=== PATIENT | female | born 1945 | race Caucasian/White ===

== ENCOUNTER → 2018-07-28 09:49 | Outpatient (CLI) | payer MEDICARE, SELFPAY ==
[2018-07-28 13:06] LABS: ALB/GLOB Ratio 1.2 RATIO (0.9-2.4); AST(SGOT) 31 U/L (15-37); Alanine Aminotransfer ALT/SGPT 29 U/L (13-56); Albumin, Serum 3.7 g/dL (3.2-5.0); Alkaline Phosphatase 76 U/L (45-117); Anion Gap 8 (5-15); BUN 15 mg/dL (7-18); Calcium,Total 8.9 mg/dL (8.5-10.1); Chloride 105 mmol/L (98-107); Cholesterol 219 mg/dL (200); Creatinine, Serum 0.94 mg/dL (0.55-1.02); EST Glomerular Filtration Rate 62 mL/min (>60); Est Glom Filt Rate - Afr Amer 75 mL/min (>60); Glucose 86 mg/dL (74-106); High Density Lipoprotein 51 mg/dL; Potassium 4.4 mmol/L (3.5-5.1); Protein, Total 6.7 g/dL (6.4-8.2); Sodium Level 142 mmol/L (136-145); Thyroid Stim Hormone (TSH) 1.88 uIU/mL (0.358-3.74); Triglycerides 99 mg/dL; Very Low Density Lipoprotein 20 mg/dL (5-40)
[2018-07-28 13:09] LABS: Vitamin D,25 Hydroxy 77.6 ng/mL (29.95-100.01)
--- OUTSIDE RECORDS SUMMARY | 2018-09-09 00:04 | XMS RPT_ITS ---
:1945 Author Organization OHIP Support Name Relationship Address Phone R Unavailable Unavailable Unavailable ARTI, URA Unavailable [address] + [place] [address] NOT GIVEN Unavailable Unavailable Unavailable ARTI, URA Unavailable [address] [place] [address] ARTI, URA Unavailable [address] [address] NOT GIVEN Unavailable Unavailable Unavailable ARTI, URA Unavailable [address] + [place] [address] ARTI, URA Unavailable [address] [address] NOT GIVEN Unavailable Unavailable Unavailable NOT GIVEN Unavailable Unavailable Unavailable ARTI, URA Unavailable [address] + [place] [address] ARTI, URA Unavailable [address] [address] NOT GIVEN Unavailable Unavailable Unavailable ARTI, URA Unavailable [address] + [place] [address] ARTI, URA Unavailable [address] [address] NOT GIVEN Unavailable Unavailable Unavailable ARTI, URA Unavailable [address] + [place] [address] ARTI, URA Unavailable [address] [address] NOT GIVEN Unavailable Unavailable Unavailable ARTI, URA Unavailable [address] + [place] [address] ARTI, URA Unavailable [address] [address] NOT GIVEN Unavailable Unavailable Unavailable ARTI, URA Unavailable [address] + [place] [address] ARTI, URA Unavailable [address] [address] NOT GIVEN Unavailable Unavailable Unavailable ARTI, URA Unavailable [address] + [place] [address] ARTI, URA Unavailable [address] [address] NOT GIVEN Unavailable Unavailable Unavailable ARTI, URA Unavailable [address] + [place] [address] ARTI, URA Unavailable [address] [place] [address] NOT GIVEN Unavailable Unavailable Unavailable ARTI, URA Unavailable [address] + [place] [address] ARTI, URA Unavailable [address] [address] Care Team Providers Name Role Phone Huyen Day Attending Unavailable Huyen Day Primary Care Unavailable KIESHA ARMENDARIZ Consulting Unavailable NATASHA DUNAWAY MD Primary Care Unavailable NATASHA DUNAWAY MD Attending Unavailable NATASHA DUNAWAY MD Admitting Unavailable PROVIDER, UNKNOWN Consulting Unavailable PROVIDER, UNKNOWN Consulting Unavailable PROVIDER, UNKNOWN Consulting Unavailable [facility] Admitting Unavailable MARCOS RIVERA Attending Unavailable MARCOS RIVERA [facility] Primary Care Unavailable HUYEN DAY MD Consulting Unavailable PROVIDER, UNKNOWN Consulting Unavailable MARCOS RIVERA [facility] Admitting Unavailable MARCOS RIVERA Attending Unavailable MARCOS RIVERA [facility] Primary Care Unavailable HUYEN DAY MD Consulting Unavailable PROVIDER, UNKNOWN Consulting Unavailable MARCOS RIVERA [facility] Admitting Unavailable MARCOS RIVERA Attending Unavailable MARCOS RIVERA [facility] Primary Care Unavailable HUYEN DAY MD Consulting Unavailable PROVIDER, UNKNOWN Consulting Unavailable MARCOS RIVERA [facility] Admitting Unavailable MARCOS RIVERA Attending Unavailable MARCOS RIVERA [facility] Primary Care Unavailable HUYEN DAY MD Consulting Unavailable PROVIDER, UNKNOWN Consulting Unavailable MARCOS RIVERA [facility] Admitting Unavailable MARCOS RIVERA [facility] Care Unavailable HUYEN DAY MD Consulting Unavailable PROVIDER, UNKNOWN Consulting Unavailable MARCOS RIVERA [facility] Admitting Unavailable MARCOS RIVERA [facility]ending [facility] Primary Care Unavailable HUYEN DAY MD Consulting Unavailable PROVIDER, UNKNOWN Consulting Unavailable [facility] Admitting Unavailable [facility]ending [facility] Unavailable HUYEN DAY MD Consulting Unavailable PROVIDER, UNKNOWN Consulting Unavailable [facility] Ad[facility] Primary Care Unavailable HUYEN DAY MD Consulting Unavailable PROVIDER, UNKNOWN Consulting Unavailable [facility] Admitting [facility] Primary Care Unavailable HUYEN DAY MD Consulting Unavailable PROVIDER, UNKNOWN Consulting Unavailable [facility] Admitting Unavailable [facility] Attending Un[facility] Primary Care Unavailable HUYEN DAY MD Consulting Unavailable PROVIDER, UNKNOWN Consulting Unavailable PROBLEMS PROBLEMS DATE TYPE CONDITION / CODE ATTENDING STATUS SOURCE 05/26/2018 Principle Essential GUMENATASHA Diagnosis (primary) [facility] hypertension / Hospital I10(ICD-10) Repository 05/26/2018 Secondary Hyperlipidemia, NATASHA DUNAWAY Diagnosis unspecified / [facility] E785(ICD-10) Hospital Repository 05/26/2018 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 LAB L501.1000 7-18 mg/dL Normal BUN 15 LAB L501.1100 0.55-1.02 mg/dL Normal CREAT,SERUM 0.94 Result Comment: The validity of the calculated GFR AND GFRAA in patients over 70 years has not been determined. Clinical correlation is essential. LAB L501.1110 >60 mL/min Normal EST GFR 62 Result Comment: Non- GFR Calc LAB L501.1115 >60 mL/min Normal EST GFR - AA 75 Result Comment: GFR Calc LAB L501.1300 10-20 RATIO Normal BUN/CRE 16.0 LAB L501.1500 6.4-8.2 g/dL T Normal PROT 6.7 LAB L501.1800 3.2-5.0 g/dL Normal ALB 3.7 LAB L501.1950 2.2-4.2 g/dL Normal GLOB 3.0 LAB L501.2000 0.9-2.4 RATIO Normal A/G 1.2 LAB L501.2200 8.5-10.1 mg/dL CA Normal 8.9 LAB L501.4100 15-37 U/L Normal AST 31 LAB L501.4305 45-117 U/L Normal ALK P 76 LAB L501.4405 13-56 U/L Normal ALT 29 LAB L501.4600 0.20-1.00 mg/dL T Normal BILI 0.60 LAB L501.5300 136-145 mmol/L NA Normal 142 LAB L501.5600 3.5-5.1 mmol/L K Normal 4.4 LAB L501.5900 98-107 mmol/L CL Normal 105 LAB L501.6100 21.0-32.0 mmol/L Normal CO2 29.0 LAB L501.6200 5-15 Normal GAP 8 Performed By: #### L500.4050, L500.4100, L501.9520, L506.1000 #### [facility] [address] [place], [address] LIPID PROFILE Collected: 07/28/2018 Status: F Source: SUE 9:52 AM [facility] REPOSITORY Order Comment: Order Date: 01/27/18 Order Info: [id number] - CMP Order Info: [id number] - LIPID Order Info: 3016-3 - TSH TYPE CODE TESTS RESULT OUT OF RANGE REFERENCE UNITS LAB L501.4900 200 mg/dL High CHOL 219 Result Comment: <200 mg/dL Desirable 200-240 mg/dL Borderline >240 mg/dL High Risk LAB L501.5000 mg/dL Normal TRIG 99 Result Comment: The drugs N-Acetylcysteine and Metamizole may falsely depress this assay. Serum Triglycerides Reference Interval Normal <150 mg/dL Borderline high 150 - 199 mg/dL High 200 - 499 mg/dL Very High > or = 500 mg/dL LAB L501.6400 mg/dL Normal HDL 51 Result Comment: The drugs N-Acetylcysteine and Metamizole may falsely depress this assay. Reference Range HDL <40 mg/dL Low HDL Cholesterol HDL >or= 60 mg/dL High HDL Cholesterol LAB L501.6500 0-130 mg/dL High LDL 148 LAB L501.6600 5-40 mg/dL Normal VLDL 20 Performed By: #### L500.4050, L500.4100, L501.9520, L506.1000 #### [facility] [address] [place], [address] THYROID STIM HORMONE Collected: 07/28/2018 Status: F Source: SUE (TSH) 9:52 AM [facility] REPOSITORY Order Comment: Order Date: 01/27/18 Order Info: [id number] - CMP Order Info: [id number] - LIPID Order Info: [id number] - TSH TYPE CODE TESTS RESULT OUT OF RANGE REFERENCE UNITS LAB L501.9520 0.358-3.74 uIU/mL Normal TSH 1.88 Performed By: #### L500.4050, L500.4100, L501.9520, L506.1000 #### [facility] [address] [facility] [place], [address] VITAMIN D,25 HYDROXY Collected: 07/28/2018 Status: F Source: SUE 9:52 AM [facility] REPOSITORY Order Comment: Order Date: 01/27/18 Order Info: [id number] - VITD25 TYPE CODE TESTS RESULT OUT OF RANGE REFERENCE UNITS LAB L506.1000 29.95-100.01 ng/mL Normal Vitamin D 77.6 25-OH Result Comment: Vitamin D 25(OH) Status Range Deficiency <20 ng/mL (50nmol/L) Insuffciency 20 - 30 ng/mL (50 - 75 nmol/L) Sufficiency 30 - 100 ng/mL (75 - 250 nmol/L) Toxicity >100 ng/mL (>250 nmol/L) Performed By: #### L500.4050, L500.4100, L501.9520, L506.1000 #### [facility] [address] [place], [address] LIPID PROFILE Collected: 07/22/2018 Status: F Source: PAUL CORTES 9:23 [facility] REPOSITORY TYPE CODE TESTS RESULT OUT OF REFERENCE UNITS RANGE LAB LIPID PROFILE(LOIN C) LIPID PROFILE Result Comment: LIPID PROFILE LAB TRIGLYCERIDE(LOINC) 0 - 150 mg/dl TRIGLYCERIDE 73 LAB CHOLESTEROL(LOINC) 0 - 200 mg/dl CHOLESTEROL High 204 LAB HDL(LOINC) 40 - 60 mg/dl HDL 50 LAB CHOL/HDL(LOINC) 0.0 - 5.0 CHOL/HDL 4.1 LAB LDL(LOINC) 0 - 129 mg/dl LDL High 139 Performed By: #### [id number] #### [address] [address] LIPID PROFILE Collected: 06/17/2018 Status: F Source: PAUL GARZAJANINA 9:18 [facility] REPOSITORY TYPE CODE TESTS RESULT OUT OF REFERENCE UNITS RANGE LAB LIPID PROFILE(LOIN C) LIPID PROFILE Result Comment: LIPID PROFILE LAB TRIGLYCERIDE(LOINC) 0 - 150 mg/dl TRIGLYCERIDE 98 LAB CHOLESTEROL(LOINC) 0 - 200 mg/dl CHOLESTEROL High 260 LAB HDL(LOINC) 40 - 60 mg/dl HDL 44 LAB CHOL/HDL(LOINC) 0.0 - 5.0 CHOL/HDL High 5.9 LAB LDL(LOINC) 0 - 129 mg/dl LDL High 196 Performed By: #### [id number] #### [address] [address] LIPID PROFILE Collected: 05/20/2018 Status: F Source: PAUL CORTES 8:45 [facility] REPOSITORY TYPE CODE TESTS RESULT OUT OF REFERENCE UNITS RANGE LAB LIPID PROFILE(LOIN C) LIPID PROFILE Result Comment: LIPID PROFILE LAB TRIGLYCERIDE(LOINC) 0 - 150 mg/dl TRIGLYCERIDE 136 LAB CHOLESTEROL(LOINC) 0 - 200 mg/dl CHOLESTEROL High 246 LAB HDL(LOINC) 40 - 60 mg/dl HDL 49 LAB CHOL/HDL(LOINC) 0.0 - 5.0 CHOL/HDL 5.0 LAB LDL(LOINC) 0 - 129 mg/dl LDL High 170 Performed By: #### [id number] #### [place] [id number] LIPID PROFILE Collected: 04/15/2018 Status: F Source: [facility] 7:35 [facility] REPOSITORY TYPE CODE TESTS RESULT OUT OF REFERENCE UNITS RANGE LAB LIPID PROFILE(LOIN C) LIPID PROFILE Result Comment: LIPID PROFILE LAB TRIGLYCERIDE(LOINC) 0 - 150 mg/dl TRIGLYCERIDE 118 LAB CHOLESTEROL(LOINC) 0 - 200 mg/dl CHOLESTEROL High 249 LAB HDL(LOINC) 40 - 60 mg/dl HDL 50 LAB CHOL/HDL(LOINC) 0.0 - 5.0 CHOL/HDL 5.0 LAB LDL(LOINC) 0 - 129 mg/dl LDL High 175 Performed By: #### [id number] #### [place] [id number] LIPID PROFILE Collected: 03/18/2018 Status: F Source: [facility] 7:45 [facility] REPOSITORY TYPE CODE TESTS RESULT OUT OF REFERENCE UNITS RANGE LAB LIPID PROFILE(LOIN C) LIPID PROFILE Result Comment: LIPID PROFILE LAB TRIGLYCERIDE(LOINC) 0 - 150 mg/dl High TRIGLYCERIDE 163 LAB CHOLESTEROL(LOINC) 0 - 200 mg/dl CHOLESTEROL High 246 LAB HDL(LOINC) 40 - 60 mg/dl HDL 44 LAB CHOL/HDL(LOINC) 0.0 - 5.0 CHOL/HDL High 5.6 LAB LDL(LOINC) 0 - 129 mg/dl LDL High 169 Performed By: #### [id number] #### [place] [id number] LIPID PROFILE Collected: 02/18/2018 Status: F Source: [facility] 7:19 [facility] REPOSITORY TYPE CODE TESTS RESULT OUT OF REFERENCE UNITS RANGE LAB LIPID PROFILE(LOIN C) LIPID PROFILE Result Comment: LIPID PROFILE LAB TRIGLYCERIDE(LOINC) 0 - 150 mg/dl High TRIGLYCERIDE 151 LAB CHOLESTEROL(LOINC) 0 - 200 mg/dl CHOLESTEROL High 244 LAB HDL(LOINC) 40 - 60 mg/dl HDL 52 LAB CHOL/HDL(LOINC) 0.0 - 5.0 CHOL/HDL 4.7 LAB LDL(LOINC) 0 - 129 mg/dl LDL High 162 Performed By: #### [id number] #### [place] [address] LIPID PROFILE Collected: 01/14/2018 Status: F Source: PAUL CORTES 8:42 [facility] REPOSITORY TYPE CODE TESTS RESULT OUT OF REFERENCE UNITS RANGE LAB LIPID PROFILE(LOIN C) LIPID PROFILE Result Comment: LIPID PROFILE LAB TRIGLYCERIDE(LOINC) 0 - 150 mg/dl TRIGLYCERIDE 113 LAB CHOLESTEROL(LOINC) 0 - 200 mg/dl CHOLESTEROL High 224 LAB HDL(LOINC) 40 - 60 mg/dl HDL 55 LAB CHOL/HDL(LOINC) 0.0 - 5.0 CHOL/HDL 4.1 LAB LDL(LOINC) 0 - 129 mg/dl LDL High 146 Performed By: #### [id number] #### [place] [address] LIPID PROFILE Collected: 12/17/2017 Status: F Source: PAUL CORTES 8:20 [facility] REPOSITORY TYPE CODE TESTS RESULT OUT OF REFERENCE UNITS RANGE LAB LIPID PROFILE(LOIN C) LIPID PROFILE Result Comment: LIPID PROFILE LAB TRIGLYCERIDE(LOINC) 0 - 150 mg/dl TRIGLYCERIDE 144 LAB CHOLESTEROL(LOINC) 0 - 200 mg/dl CHOLESTEROL High 246 LAB HDL(LOINC) 40 - 60 mg/dl HDL 48 LAB CHOL/HDL(LOINC) 0.0 - 5.0 CHOL/HDL High 5.1 LAB LDL(LOINC) 0 - 129 mg/dl LDL High 169 Performed By: #### [id number] #### [place] [address] LIPID PROFILE Collected: 10/22/2017 Status: F Source: PAUL CORTES 8:15 [facility] REPOSITORY TYPE CODE TESTS RESULT OUT OF REFERENCE UNITS RANGE LAB LIPID PROFILE(LOIN C) LIPID PROFILE Result Comment: LIPID PROFILE LAB TRIGLYCERIDE(LOINC) 0 - 150 mg/dl High TRIGLYCERIDE 163 LAB CHOLESTEROL(LOINC) 0 - 200 mg/dl CHOLESTEROL High 257 LAB HDL(LOINC) 40 - 60 mg/dl HDL 48 LAB CHOL/HDL(LOINC) 0.0 - 5.0 CHOL/HDL High 5.4 LAB LDL(LOINC) 0 - 129 mg/dl LDL High 176 Performed By: #### [id number] #### [place] [id number] LIPID PROFILE Collected: 09/17/2017 Status: F Source: PAUL GARZAERENE 9:30 AM [facility] REPOSITORY TYPE CODE TESTS RESULT OUT OF REFERENCE UNITS RANGE LAB LIPID PROFILE(LOIN C) LIPID PROFILE Result Comment: LIPID PROFILE LAB TRIGLYCERIDE(LOINC) 0 - 150 mg/dl High TRIGLYCERIDE 151 LAB CHOLESTEROL(LOINC) 0 - 200 mg/dl CHOLESTEROL High 304 LAB HDL(LOINC) 40 - 60 mg/dl HDL 52 LAB CHOL/HDL(LOINC) 0.0 - 5.0 CHOL/HDL High 5.8 LAB LDL(LOINC) 0 - 129 mg/dl LDL High 222 Performed By: #### [id number] #### [facility],[address] [place] [address] ALLERGIES ALLERGIES DATE TYPE / CODE NAME / CODE REACTION SEVERITY SOURCE Miscellaneous No Known Drug Moderate Pauldario Garzajanina Allergy/[id number](S Allergies ([facility]) Modifier) Hospital (Qualifier Repository Value) ENCOUNTERS ENCOUNTERS ADMIT/DISCHARGE ACCOUNT ADMITTING ENCOUNTER LOCATION SOURCE NUMBER CLASS 07/28/2018 [id number] Ambulatory [address] ing:MFPLAB Repository 07/22/2018/ [id number] PAUL, Ambulatory Paul Pomerene [address] [place] [address] Repository 06/17/2018/ [id number] PAUL, Ambulatory Paul Pomerene [address] [place] [address] Repository 05/26/2018 [id number] GUME Ambulatory [place] NATASHA [facility] Repository 05/20/2018/ [id number] PAUL, Ambulatory Paul Pomerene [address] [place] [address] Repository 04/15/2018/ [id number] PAUL, Ambulatory Paul Pome[place] [address] [place] [address] Repository 03/18/2018/ [id number] PAUL, Ambulatory Paul Pome[place] [address] [place] [address] Repository 02/18/2018/ [id number] PAUL, Ambulatory Paul Pomerene [address] [place] [address] Repository 01/14/2018/ [id number] PAUL, Ambulatory Paul Pomerene [address] [place] [address] Repository 12/17/2017/ [id number] PAUL, Ambulatory Paul Pomerene 8 [facility] Repository 10/22/2017/ [id number] PAUL, Ambulatory Paul Pomerene 8 [facility] Repository 09/17/2017/ [id number] PAUL, Ambulatory Paul Pomerene 8 [facility] Repository PAYERS PAYERS ENCOUNTER GUARANTOR PAYER SUBSCRIBER SOURCE 07/28/2018 ROBERT S Primary VERBA S Sue [id number] Insurance:HUMANA STUTZMANDOB: Community [address] MEDICARE PPOPolicy [id number] Repository [place], [place] [id number]: [phone]) Date:[phone] () [address] [place] [id number]: 07/28/2018 Secondary NOT GIVENUNK [place] Insurance:SELF PAY [facility] Number: Effective Repository Date:2018-07-28 05/26/2018 VERBA S Primary VERBA S Paul Cortes STUTZMANDOB: Insurance:HUMANA STUTZMANDOB: [facility] MEDICARE [id number] [facility] LETICIALERSHECTOR Number: [place] [place] [address]Ypg: [id number] [address] Date:Plan Name: ()
== END ==
PROVIDERS: Family Provider Family Medicine; PCP Family Medicine; Visit Provider Family Medicine
DX: E78.5 Hyperlipidemia, unspecified (principal); M85.80 Other specified disorders of bone density and structure, unspecified site
CPT/HCPCS: 36415; 80053; 80061; 82306; 84443

== ENCOUNTER → 2019-02-03 | Outpatient (CLI) | payer MEDICARE, SELFPAY ==
[2019-02-03 15:56] LABS: Anion Gap 8 (5-15); BUN 12 mg/dL (7-18); BUN/Creat Ratio 11.7 RATIO (10-20); Calcium,Total 9.3 mg/dL (8.5-10.1); Chloride 105 mmol/L (98-107); Cholesterol 296 mg/dL (200); Creatinine, Serum 1.03 mg/dL (0.55-1.02); EST Glomerular Filtration Rate 56 mL/min (>60); Est Glom Filt Rate - Afr Amer 68 mL/min (>60); Glucose 93 mg/dL (74-106); High Density Lipoprotein 54 mg/dL; Potassium 4.6 mmol/L (3.5-5.1); Sodium Level 142 mmol/L (136-145); Triglycerides 141 mg/dL; Very Low Density Lipoprotein 28 mg/dL (5-40)
== END | disposition home or self-care (01) ==
PROVIDERS: Family Provider Family Medicine; PCP Family Medicine; Referring Provider Family Medicine; Visit Provider Family Medicine
DX: Z00.00 Encounter for general adult medical examination without abnormal findings (principal)
CPT/HCPCS: 36415; 80048; 80061

== ENCOUNTER → 2019-09-16 09:49 | Outpatient (CLI) | payer MEDICARE, SELFPAY ==
--- NOTE | 2019-09-16 09:53 | BI_ITS ---
MAMMOGRAPHY - BILATERAL SCREENING REASON FOR EXAM: Female, 73 years old. Routine annual screening examination. PERTINENT HISTORY: Non-contributory. TECHNIQUE: Digital bilateral breast marcie (3D mammographic acquisition) in the CC and MLO projections. 2-D mediolateral oblique (MLO) and craniocaudad (CC) views of both breasts were obtained. CAD: Full Field Digital Mammography with Computer Added Detection was performed. COMPARISON: Comparison is made with prior axial examination dated April 18, 2015. FINDINGS: Breast Composition: The breasts are heterogeneously dense, which may obscure small masses. There are no dominant masses or suspicious calcifications. No other significant abnormalities are identified. There has been no significant change since the prior study. BI/SCREEN MAMM (CAD) W/MARCIE BILAT IMPRESSION: Stable bilateral screening mammogram. Yearly follow-up mammogram recommended. (A) ASSESSMENT CATEGORY: BIRADS Category 1: Negative. A letter regarding these results will be sent to the patient by the facility within 30 days. Approximately 10% of breast cancers are not detected by mammography. A normal mammogram should not delay biopsy of a clinically suspicious abnormality. [id number] Electronically Signed: Fer Avila, at 8:50 EST , Service support ,
--- NOTE | 2019-09-16 10:27 | BD_ITS ---
STUDY: DUAL ENERGY X-RAY ABSORPTIOMETRY / DXA REASON FOR EXAM: Female, 73 years old. CHIN STRAP SEWER -- TAKES VITAMIN D -- HX OF TAKING ACTONEL AND FOSAMAX IN PAST -- DOES LITTLE EXERCISE -- HX OF LEFT HUMERUS FX -- CRISTINA OF 1-1.5 INCH TECHNIQUE: Bone Mineral Density (BMD) measurements of lumbar spine and bilateral hips were obtained. COMPARISON: None. FINDINGS: Lumbar Spine (L1-L4): g/cm2 (0.976) / T-score (-1.7) / Z-score (0.0) Findings are suggestive of osteopenia with a moderate fracture risk. Left Femur Total: g/cm2 (0.773) / T-score (-1.9) / Z-score (-0.2) Left Femoral Neck: g/cm2 (0.807) / T-score (-1.7) / Z-score (0.2) Right Femur Total: g/cm2 (0.723) / T-score (-2.3) / Z-score (-0.6) Right Femoral Neck: g/cm2 (0.802) / T-score (-1.7) / Z-score (0.2) BD/Dexa Bone Density Study IMPRESSION: The patient is considered osteopenic as outlined below according to World Alvin Organization (WHO) criteria with a high fracture risk. Reference Information: The T-score is the number of standard deviations above or below the standard which is normal for young adults at their peak bone mineral density. The World Health Organization (WHO) interprets the T-scores as follows: Above -1 Normal bone density Between -1 and -2.5 Osteopenia Equal to / or below -2.5 Osteoporosis As a practical clinical guideline, osteopenia may be graded as follows: Mild -1 through -1.5 Moderate -1.6 through -2.0 Severe -2.1 through -2.4 The Z-score is the number of standard deviations above or below age-matched controls. A Z-score of less than -1.5 would be considered abnormal. References: 1. NIH Osteoporosis and Related Bone Diseases http://www.osteo.org 2. International Society for Clinical Densitometry http://www.iscd.org 3. National Osteoporosis Foundation http://www.nof.org Electronically Signed: Fer Avila, at 13:32 EST , Service support ,
== END ==
PROVIDERS: Family Provider Family Medicine; PCP Family Medicine; Referring Provider Family Medicine; Visit Provider Family Medicine
DX: Z00.00 Encounter for general adult medical examination without abnormal findings (principal); Z12.31 Encounter for screening mammogram for malignant neoplasm of breast; Z78.0 Asymptomatic menopausal state
CPT/HCPCS: 77063; 77067; 77080

== ENCOUNTER → 2020-02-08 08:39 | Outpatient (CLI) | payer MEDICARE, SELFPAY ==
[2020-02-08 10:28] LABS: ALB/GLOB Ratio 0.9 RATIO (0.9-2.4); AST(SGOT) 28 U/L (15-37); Alanine Aminotransfer ALT/SGPT 29 U/L (13-56); Albumin, Serum 3.7 g/dL (3.2-5.0); Alkaline Phosphatase 89 U/L (45-117); Anion Gap 6 (5-15); BUN 11 mg/dL (7-18); BUN/Creat Ratio 11.1 RATIO (10-20); Calcium,Total 9.5 mg/dL (8.5-10.1); Chloride 103 mmol/L (98-107); Cholesterol 273 mg/dL (200); Creatinine, Serum 0.99 mg/dL (0.55-1.02); EST Glomerular Filtration Rate 58 mL/min (>60); Est Glom Filt Rate - Afr Amer 71 mL/min (>60); Globulin 3.9 g/dL (2.2-4.2); Glucose 105 mg/dL (74-106); High Density Lipoprotein 49 mg/dL; Potassium 4.5 mmol/L (3.5-5.1); Protein, Total 7.6 g/dL (6.4-8.2); Sodium Level 139 mmol/L (136-145); Triglycerides 125 mg/dL; Very Low Density Lipoprotein 25 mg/dL (5-40)
[2020-02-08 10:30] LABS: Vitamin D,25 Hydroxy 83.4 ng/mL
== END ==
PROVIDERS: PCP Family Medicine; Referring Provider Family Medicine; Visit Provider Family Medicine
DX: Z00.00 Encounter for general adult medical examination without abnormal findings (principal); I10 Essential (primary) hypertension; E55.9 Vitamin D deficiency, unspecified
CPT/HCPCS: 36415; 80053; 80061; 82306

== ENCOUNTER → 2020-08-08 09:43 | Outpatient (CLI) | payer MEDICARE, SELFPAY ==
[2020-08-08 12:44] LABS: Anion Gap 5 (5-15); BUN 15 mg/dL (7-18); BUN/Creat Ratio 16.2 RATIO (10-20); Calcium,Total 9.2 mg/dL (8.5-10.1); Chloride 105 mmol/L (98-107); Cholesterol 241 mg/dL (200); Creatinine, Serum 0.93 mg/dL (0.55-1.02); EST Glomerular Filtration Rate 63 mL/min (>60); Est Glom Filt Rate - Afr Amer 76 mL/min (>60); Glucose 86 mg/dL (74-106); High Density Lipoprotein 51 mg/dL; Potassium 4.4 mmol/L (3.5-5.1); Sodium Level 140 mmol/L (136-145); Triglycerides 122 mg/dL; Very Low Density Lipoprotein 24 mg/dL (5-40)
[2020-08-08 12:46] LABS: Vitamin D,25 Hydroxy 69.8 ng/mL
== END ==
PROVIDERS: PCP Family Medicine; Visit Provider Family Medicine
DX: I10 Essential (primary) hypertension (principal); E55.9 Vitamin D deficiency, unspecified
CPT/HCPCS: 36415; 80048; 80061; 82306

== ENCOUNTER → 2020-12-27 08:06 | Outpatient (CLI) | payer MEDICARE, SELFPAY ==
--- NOTE | 2020-12-27 08:10 | BI_ITS ---
MAMMOGRAPHY - BILATERAL SCREENING REASON FOR EXAM: Female, 75 years old. Routine annual screening examination. PERTINENT HISTORY: Non-contributory. TECHNIQUE: Digital bilateral breast marcie (3D mammographic acquisition) in the CC and MLO projections. 2-D mediolateral oblique (MLO) and craniocaudad (CC) views of both breasts were obtained. CAD: Full Field Digital Mammography with Computer Added Detection was performed. COMPARISON: Comparison is made with prior study dated 03/16/2020. FINDINGS: Breast Composition: The breasts are heterogeneously dense, which may obscure small masses. There are no dominant masses or suspicious calcifications. No other significant abnormalities are identified. There has been no significant change since the prior study. BI/SCRN MAMM (CAD)W/MARCIE BILAT IMPRESSION: Stable bilateral screening mammogram. Yearly follow-up mammogram recommended. (A) ASSESSMENT CATEGORY: BIRADS Category 1: Negative. A letter regarding these results will be sent to the patient by the facility within 30 days. Approximately 10% of breast cancers are not detected by mammography. A normal mammogram should not delay biopsy of a clinically suspicious abnormality. [id number] Electronically Signed: Fer Avila MD at 9:11 EDT , Service support ,
== END ==
PROVIDERS: PCP Family Medicine; Referring Provider Family Medicine; Visit Provider Family Medicine
DX: Z00.00 Encounter for general adult medical examination without abnormal findings (principal); Z12.31 Encounter for screening mammogram for malignant neoplasm of breast
CPT/HCPCS: 77063; 77067

== ENCOUNTER → 2021-02-27 08:09 | Outpatient (CLI) | payer MEDICARE, SELFPAY | PROVIDERS: PCP Family Medicine; Visit Provider Family Medicine | DX: Z00.00 Encounter for general adult medical examination without abnormal findings (principal) ==

== ENCOUNTER → 2021-02-28 08:32 | Outpatient (CLI) | payer MEDICARE, SELFPAY ==
[2021-02-28 10:50] LABS: Anion Gap 6 (5-15); BUN 13 mg/dL (7-18); BUN/Creat Ratio 11.6 RATIO (10-20); Calcium,Total 9.2 mg/dL (8.5-10.1); Chloride 104 mmol/L (98-107); Cholesterol 253 mg/dL (200); Creatinine, Serum 1.12 mg/dL (0.55-1.02); EST Glomerular Filtration Rate 50 mL/min (>60); Est Glom Filt Rate - Afr Amer 61 mL/min (>60); Glucose 96 mg/dL (74-106); High Density Lipoprotein 51 mg/dL; Potassium 3.8 mmol/L (3.5-5.1); Sodium Level 140 mmol/L (136-145); Triglycerides 133 mg/dL; Very Low Density Lipoprotein 27 mg/dL (5-40)
== END ==
PROVIDERS: PCP Family Medicine; Visit Provider Family Medicine
DX: E78.5 Hyperlipidemia, unspecified (principal)
CPT/HCPCS: 36415; 80048; 80061

== ENCOUNTER 2021-09-10 09:26 | Outpatient (CLI) | payer MEDICARE, SELFPAY ==
[2021-09-10 11:18] LABS: Anion Gap 5 (5-15); BUN 13 mg/dL (7-18); BUN/Creat Ratio 14.2 RATIO (10-20); Calcium,Total 9.3 mg/dL (8.5-10.1); Chloride 102 mmol/L (98-107); Cholesterol 268 mg/dL (200); Creatinine, Serum 0.92 mg/dL (0.55-1.02); EST Glomerular Filtration Rate 63 mL/min (>60); Est Glom Filt Rate - Afr Amer 77 mL/min (>60); Glucose 93 mg/dL (74-106); High Density Lipoprotein 51 mg/dL; Potassium 4.1 mmol/L (3.5-5.1); Sodium Level 138 mmol/L (136-145); Triglycerides 137 mg/dL; Very Low Density Lipoprotein 27 mg/dL (5-40)
[2021-09-10 13:38] LABS: Vitamin D,25 Hydroxy 71.9 ng/mL
== END 2021-09-10 23:59 | disposition short-term general hospital (02) ==
LOC: MFPLAB 09:27
PROVIDERS: PCP Family Medicine; Visit Provider Family Medicine
DX: I10 Essential (primary) hypertension (principal); E78.5 Hyperlipidemia, unspecified; E55.9 Vitamin D deficiency, unspecified
CPT/HCPCS: 36415; 80048; 80061; 82306; 86769

== ENCOUNTER 2021-10-02 14:06 | Outpatient (CLI) | payer MEDICARE, SELFPAY ==
--- NOTE | 2021-10-02 14:23 | BD_ITS ---
STUDY: DUAL ENERGY X-RAY ABSORPTIOMETRY / DXA REASON FOR EXAM: Female, 75 years old. Z780. The patient is postmenopausal. TECHNIQUE: Bone Mineral Density (BMD) measurements of lumbar spine and bilateral hips were obtained. COMPARISON: Comparison is made with prior study dated 09/16/2019. FINDINGS: Lumbar Spine (L1-L4): g/cm2 (0.776) / T-score (-2.5) / Z-score (0.0) Findings are suggestive of osteopenia with a high fracture risk. Left Femur Total: g/cm2 (0.719) / T-score (-1.8) / Z-score (0.0) Left Femoral Neck: g/cm2 (0.58) / T-score (-2.4) / Z-score (-0.3) Right Femur Total: g/cm2 (0.657) / T-score (-2.3) / Z-score (-0.5) Right Femoral Neck: g/cm2 (0.562) / T-score (-2.6) / Z-score (-0.5) The T-Scores on the most recent prior examination were: Lumbar Spine (L1-L4): There has been worsening of bone density since the previous examination. Left Femur Total: which represents an improvement of 0.7%. Right Femur Total: which represents a worsening of 1.2%. BD/Dexa Bone Density Study IMPRESSION: The patient is considered osteoporotic as outlined below according to World Alvin Organization (WHO) criteria with a high fracture risk. There has been worsening of bone density since the previous examination. Reference Information: The T-score is the number of standard deviations above or below the standard which is normal for young adults at their peak bone mineral density. The World Health Organization (WHO) interprets the T-scores as follows: Above -1 Normal bone density Between -1 and -2.5 Osteopenia Equal to / or below -2.5 Osteoporosis As a practical clinical guideline, osteopenia may be graded as follows: Mild -1 through -1.5 Moderate -1.6 through -2.0 Severe -2.1 through -2.4 The Z-score is the number of standard deviations above or below age-matched controls. A Z-score of less than -1.5 would be considered abnormal. References: 1. NIH Osteoporosis and Related Bone Diseases www osteo.org 2. International Society for Clinical Densitometry www iscd.org 3. National Osteoporosis Foundation www nof.org Electronically Signed: Fer Avila MD at 12:35 EST ,
== END 2021-10-02 23:59 | disposition short-term general hospital (02) ==
LOC: OPBD 14:06
PROVIDERS: PCP Family Medicine; Visit Provider Family Medicine
DX: Z78.0 Asymptomatic menopausal state (principal)
CPT/HCPCS: 77080

== ENCOUNTER → 2022-01-17 | Outpatient (CLI) | payer MEDICARE, SELFPAY ==
--- NOTE | 2022-01-17 09:12 | BI_ITS ---
MAMMOGRAPHY - BILATERAL SCREENING REASON FOR EXAM: Female, 76 years old. Routine annual screening examination. PERTINENT HISTORY: Non-contributory. TECHNIQUE: Digital bilateral breast marcie (3D mammographic acquisition) in the CC and MLO projections. 2-D mediolateral oblique (MLO) and craniocaudad (CC) views of both breasts were obtained. CAD: Full Field Digital Mammography with Computer Added Detection was performed. COMPARISON: Comparison is made with prior study dated 12/27/2020 and 09/16/2019. FINDINGS: Breast Composition: The breasts are heterogeneously dense, which may obscure small masses. There are no dominant masses or suspicious calcifications. No other significant abnormalities are identified. There has been no significant change since the prior study. BI/SCRN MAMM (CAD)W/MARCIE BILAT IMPRESSION: Stable bilateral screening mammogram. Yearly follow-up mammogram recommended. (A) ASSESSMENT CATEGORY: BIRADS Category 1: Negative. A letter regarding these results will be sent to the patient by the facility within 30 days. Approximately 10% of breast cancers are not detected by mammography. A normal mammogram should not delay biopsy of a clinically suspicious abnormality. [id number] Electronically Signed: Fer Avila MD at 10:02 EDT ,
== END | disposition home or self-care (01) ==
LOC: OPBI 09:10
PROVIDERS: PCP Family Medicine; Visit Provider Family Medicine
DX: Z12.31 Encounter for screening mammogram for malignant neoplasm of breast (principal)
CPT/HCPCS: 77063; 77067

== ENCOUNTER → 2022-03-07 | Outpatient (CLI) | payer MEDICARE, SELFPAY ==
[2022-03-07 09:29] LABS: Anion Gap 2 (5-15); BUN 13 mg/dL (7-18); BUN/Creat Ratio 12.1 RATIO (10-20); Calcium,Total 9.5 mg/dL (8.5-10.1); Chloride 105 mmol/L (98-107); Cholesterol 245 mg/dL (200); Creatinine, Serum 1.07 mg/dL (0.55-1.02); EST Glomerular Filtration Rate 53 mL/min (>60); Est Glom Filt Rate - Afr Amer 64 mL/min (>60); Glucose 100 mg/dL (74-106); High Density Lipoprotein 53 mg/dL; Potassium 4.9 mmol/L (3.5-5.1); Sodium Level 138 mmol/L (136-145); Triglycerides 119 mg/dL; Very Low Density Lipoprotein 24 mg/dL (5-40)
[2022-03-07 09:32] LABS: Vitamin D,25 Hydroxy 78.2 ng/mL
== END | disposition home or self-care (01) ==
PROVIDERS: PCP Family Medicine; Referring Provider Family Medicine; Visit Provider Family Medicine
DX: I10 Essential (primary) hypertension (principal); E78.5 Hyperlipidemia, unspecified; E55.9 Vitamin D deficiency, unspecified
CPT/HCPCS: 80048; 80061; 82306

== ENCOUNTER → 2022-09-19 | Outpatient (CLI) | payer MEDICARE, SELFPAY ==
[2022-09-19 12:42] LABS: Anion Gap 6 (5-15); BUN 17 mg/dL (7-18); BUN/Creat Ratio 16.2 RATIO (10-20); Calcium,Total 9.6 mg/dL (8.5-10.1); Chloride 104 mmol/L (98-107); Creatinine, Serum 1.05 mg/dL (0.55-1.02); EST Glomerular Filtration Rate 54 mL/min (>60); Est Glom Filt Rate - Afr Amer 65 mL/min (>60); Glucose 87 mg/dL (74-106); Magnesium 2.5 mg/dL (1.6-2.6); Phosphorus 3.3 mg/dL (2.5-4.9); Potassium 4.5 mmol/L (3.5-5.1); Sodium Level 141 mmol/L (136-145)
[2022-09-19 12:43] LABS: PTHIN 41.6 pg/mL (18.4-80.1)
[2022-09-19 12:52] LABS: Vitamin D,25 Hydroxy 84.9 ng/mL
== END | disposition home or self-care (01) ==
LOC: MFPLAB 11:02
PROVIDERS: PCP Family Medicine; Visit Provider Family Medicine
DX: M81.0 Age-related osteoporosis without current pathological fracture (principal)
CPT/HCPCS: 36415; 80048; 82306; 82330; 83735; 83970; 84100

== ENCOUNTER → 2023-09-16 | Outpatient (CLI) | payer MEDICARE, SELFPAY ==
--- OUTSIDE RECORDS SUMMARY | 2023-09-16 08:51 | XMS RPT_ITS | CCD ---
Author Name Unknown Address [address] [place] [address] Organization [facility] Care Team Providers Care Forest Manager Name Role Phone [facility] Admitting Unavailable [facility] Attending Unavailable [facility] Primary Care Unavailable HUYEN DAY MD Consulting Unavailab le PROVIDER, UNKNOWN Consulting Unavailable Results Test Name Value Interpretation Reference Range Facil ity Encounters Encounter Date Encounter Type Care Provider Facility Start: 03-12-2023 End: 03-12-2023 [facility] Summary Purpose Family History No Family History Records Found Advance Directives No Advanced Directives Records Found Additional Source Comments INFORMATION SOURCE (unrecogn ized section and content) FOR RECORDS PERTAINING TO PATIENTS WHO ARE OR HAVE BEEN ENROLLED IN A CHEMICAL DEPENDENCY/SUBSTANCEABUSE PROGRAM, SOME INFORMATION MAY BE OMITTED. This clinical summary was aggregated from multiple sources. Caution should be exercised in using it in the provision of clinical care. This summary normalizes information from multiple sources, and as a consequence, information in this document may materially change the coding, format and clinical context of patient data. In addition, data may be omitted in some cases. CLINICAL DECISIONS SHOULD BE BASED ON THE PRIMARY CLINICAL RECORDS. [email or web address] provides no warranty or guarantee of the accuracy or completeness of information in this document.
[2023-09-16 10:41] LABS: Vitamin D,25 Hydroxy 102.3 ng/mL
[2023-09-16 10:53] LABS: AST(SGOT) 28 U/L (15-37); Alanine Aminotransfer ALT/SGPT 23 U/L (13-56); Albumin, Serum 3.6 g/dL (3.2-5.0); Alkaline Phosphatase 86 U/L (45-117); Anion Gap 8 (5-15); BUN 15 mg/dL (7-18); BUN/Creat Ratio 13.9 RATIO (10-20); Calcium,Total 9.9 mg/dL (8.5-10.1); Chloride 103 mmol/L (98-107); Cholesterol 277 mg/dL (200); Creatinine, Serum 1.08 mg/dL (0.55-1.02); EST Glomerular Filtration Rate 52 mL/min (>60); Est Glom Filt Rate - Afr Amer 63 mL/min (>60); Globulin 3.7 g/dL (2.2-4.2); Glucose 95 mg/dL (74-106); High Density Lipoprotein 60 mg/dL; Protein, Total 7.3 g/dL (6.4-8.2); Sodium Level 137 mmol/L (136-145); Thyroid Stim Hormone (TSH) 1.73 uIU/mL (0.358-3.74); Triglycerides 131 mg/dL; Very Low Density Lipoprotein 26 mg/dL (5-40)
== END | disposition home or self-care (01) ==
LOC: MFPLAB 08:25
PROVIDERS: PCP Family Medicine; Visit Provider Family Medicine
DX: M81.0 Age-related osteoporosis without current pathological fracture (principal); E78.5 Hyperlipidemia, unspecified
CPT/HCPCS: 36415; 80053; 80061; 82306; 84443

== ENCOUNTER → 2024-03-17 | Outpatient (CLI) | payer MEDICARE, SELFPAY | END | disposition home or self-care (01) | LOC: MFPLAB 11:27 | PROVIDERS: PCP Family Medicine; Visit Provider Family Medicine | DX: R69 Illness, unspecified (principal) ==

== ENCOUNTER → 2024-03-22 | Outpatient (CLI) | payer MEDICARE, SELFPAY ==
[2024-03-22 15:34] LABS: Anion Gap 3 (5-15); BUN 14 mg/dL (7-18); BUN/Creat Ratio 13.5 RATIO (10-20); Calcium,Total 9.2 mg/dL (8.5-10.1); Chloride 105 mmol/L (98-107); Creatinine, Serum 1.04 mg/dL (0.55-1.02); EST Glomerular Filtration Rate 54 mL/min (>60); Est Glom Filt Rate - Afr Amer 66 mL/min (>60); Glucose 90 mg/dL (74-106); Sodium Level 136 mmol/L (136-145)
== END | disposition home or self-care (01) ==
LOC: MFPLAB 13:52
PROVIDERS: PCP Family Medicine; Visit Provider Family Medicine
DX: I10 Essential (primary) hypertension (principal)
CPT/HCPCS: 36415; 80048

== ENCOUNTER → 2024-04-06 | Outpatient (CLI) | payer MEDICARE, SELFPAY ==
--- NOTE | 2024-04-06 14:38 | BI_ITS ---
MAMMOGRAPHY - BILATERAL SCREENING REASON FOR EXAM: Female, 78 years old. Routine annual screening examination. PERTINENT HISTORY: Non-contributory. TECHNIQUE: Digital bilateral breast marcie (3D mammographic acquisition) in the CC and MLO projections. 2-D mediolateral oblique (MLO) and craniocaudad (CC) views of both breasts were obtained. CAD: Full Field Digital Mammography with Computer Added Detection was performed. COMPARISON: Comparison is made with prior study January 17, 2022 and December 27, 2020. FINDINGS: Breast Composition: The breasts are heterogeneously dense, which may obscure small masses. There are no dominant masses or suspicious calcifications. No other significant abnormalities are identified. There has been no significant change since the prior study. BI/SCRN MAMM (CAD)W/MARCIE BILAT IMPRESSION: Stable bilateral screening mammogram. Yearly follow-up mammogram recommended. (A) ASSESSMENT CATEGORY: BIRADS Category 1: Negative. A letter regarding these results will be sent to the patient by the facility within 30 days. Approximately 10% of breast cancers are not detected by mammography. A normal mammogram should not delay biopsy of a clinically suspicious abnormality. [id number] Electronically Signed: Fer Avila MD at 15:38 EDT ,
--- NOTE | 2024-04-06 14:42 | BD_ITS ---
STUDY: DUAL ENERGY X-RAY ABSORPTIOMETRY / DXA REASON FOR EXAM: Female, 78 years old. [id number] TECHNIQUE: Bone Mineral Density (BMD) measurements of lumbar spine and bilateral hips were obtained. COMPARISON: Comparison is made with prior study dated October 02, 2021. FINDINGS: Lumbar Spine (L1-L4): g/cm2 (0.767) / T-score (-2.5) / Z-score (0.0) Findings are suggestive of osteoporosis with a high fracture risk. Left Femur Total: g/cm2 (0.711) / T-score (-1.9) / Z-score (0.1) Left Femoral Neck: g/cm2 (0.569) / T-score (-2.5) / Z-score (-0.3) Right Femur Total: g/cm2 (0.684) / T-score (-2.1) / Z-score (-0.1) Right Femoral Neck: g/cm2 (0.598) / T-score (-2.3) / Z-score (0.0) The T-Scores on the most recent prior examination were: Lumbar Spine (L1-L4): There has been worsening of bone density since the previous examination. Left Femur Total: which represents a worsening of 1.1%. Right Femur Total: which represents an improvement of 4.1%. BD/Dexa Bone Density Study IMPRESSION: The patient is considered osteoporotic as outlined below according to World Alvin Organization (WHO) criteria with a high fracture risk. There has been worsening of bone density since the previous examination. Reference Information: The T-score is the number of standard deviations above or below the standard which is normal for young adults at their peak bone mineral density. The World Health Organization (WHO) interprets the T-scores as follows: Above -1 Normal bone density Between -1 and -2.5 Osteopenia Equal to / or below -2.5 Osteoporosis As a practical clinical guideline, osteopenia may be graded as follows: Mild -1 through -1.5 Moderate -1.6 through -2.0 Severe -2.1 through -2.4 The Z-score is the number of standard deviations above or below age-matched controls. A Z-score of less than -1.5 would be considered abnormal. References: 1. NIH Osteoporosis and Related Bone Diseases www osteo.org 2. International Society for Clinical Densitometry www iscd.org 3. National Osteoporosis Foundation www nof.org Electronically Signed: Fer Avila MD at 9:31 EDT ,
== END | disposition home or self-care (01) ==
LOC: OPBD 14:37
PROVIDERS: PCP Family Medicine; Referring Provider Family Medicine; Visit Provider Family Medicine
DX: Z00.00 Encounter for general adult medical examination without abnormal findings (principal); Z12.31 Encounter for screening mammogram for malignant neoplasm of breast; Z78.0 Asymptomatic menopausal state
CPT/HCPCS: 77063; 77067; 77080

== ENCOUNTER → 2024-09-30 | Outpatient (CLI) | payer OTHER, SELFPAY ==
[2024-09-30 11:10] LABS: Vitamin D,25 Hydroxy 92.1 ng/mL
[2024-09-30 11:30] LABS: Anion Gap 6 (5-15); BUN 18 mg/dL (7-18); BUN/Creat Ratio 17.1 RATIO (10-20); Calcium,Total 9.9 mg/dL (8.5-10.1); Chloride 105 mmol/L (98-107); Cholesterol 258 mg/dL (200); Creatinine, Serum 1.05 mg/dL (0.55-1.02); EST Glomerular Filtration Rate 54 mL/min (>60); Est Glom Filt Rate - Afr Amer 65 mL/min (>60); Glucose 102 mg/dL (74-106); High Density Lipoprotein 60 mg/dL; Potassium 4.3 mmol/L (3.5-5.1); Sodium Level 139 mmol/L (136-145); Triglycerides 115 mg/dL; Very Low Density Lipoprotein 23 mg/dL (5-40)
== END | disposition home or self-care (01) ==
LOC: MFPLAB 08:12
PROVIDERS: PCP Family Medicine; Visit Provider Family Medicine
DX: I10 Essential (primary) hypertension (principal); M81.0 Age-related osteoporosis without current pathological fracture
CPT/HCPCS: 36415; 80048; 80061; 82306; 83970; 84443

== ENCOUNTER → 2025-03-29 | Outpatient (CLI) | payer OTHER, SELFPAY ==
[2025-03-29 14:31] LABS: Anion Gap 11 (5-15); BUN 13 mg/dL (4-19); BUN/Creat Ratio 12.3 RATIO (10-20); Calcium,Total 9.8 mg/dL (7.6-11.0); Carbon Dioxide 26.0 mmol/L (21.0-32.0); Chloride 104 mmol/L (98-108); Cholesterol 189 mg/dL (<=200); Glucose 97 mg/dL (70-99); Low Density Lipoprotein Calc. 108 mg/dL; Potassium 4.1 mmol/L (3.3-5.1); Triglycerides 117 mg/dL; Very Low Density Lipoprotein 23 mg/dL (5-40); cholesterol:hdl ratio screen 3.29
--- OUTSIDE RECORDS SUMMARY | 2025-03-29 20:27 | XMS RPT_ITS | CCD ---
Author Organization [facility] Care Team Providers Care Waste Water [employer] Operator Name Role Phone Juan Day Primary Care Unavailable Juan Day Referring Unavailable Juan Day Attending Unavailable Alda, Juan Primary Care Unavailable Alda, Juan Attending Unavailable Alda, Juan Attending Unavailable Alda, Juan Primary Care Unavailable Alda, Juan Primary Care Unavailable Alda, Juan Attending Unavailable [facility] Admitting Unavailable [facility] Primary Care Unavailable [facility] Attending Unavailable JUAN DAY MD Consulting Unavailab le PROVIDER, UNKNOWN Consulting Unavailable [facility] Primary Care Unavailable [facility] Attending Unavailable JUAN DAY MD Consulting Unavailab le [facility] Admitting Unavailable PROVIDER, UNKNOWN Consulting Unavailable PROVIDER, EXTERNAL Admitting Unavailable PROVIDER, EXTERNAL Primary Care Unavailable PROVIDER, EXTERNAL Attending Unavailable JUAN DAY MD Consulting Unavailab le PROVIDER, UNKNOWN Consulting Unavailable Problems Active Problems Problem Classification Problem Date Documented Da te Episodic/Chronic Essential hypertension (1 source) Essential (primary) hypertension; Translations: [Essential (primary) hypertension] Onset: 10-13-2024 Chronic Past or Other Problems Problem Classification Problem Date Documented Da te Episodic/Chronic Residual codes; unclassified (1 source) Illness, unspecified; Translations: [Illness, unspecified] Onset: 04-01-2024 Episodic Results Test Name Value Interpretation Reference Range Facility LIPID PROFILEon 02-23-2025 Cholesterol [Mass/Vol] 229 mg/dL Normal 0 - 240 [facility] Comment on above: Performed By: #### 2 08200 #### [facility],[address] [place] [address] 12388 Cholesterol in HDL [Mass/Vol] 58 mg/dL Normal 40 - 60 [facility] Comment on above: Performed By: #### 2 50305 #### [facility],[address] [place] [address] 02352 Cholesterol in LDL [Mass/Vol] 156 mg/dL High 0 - 129 [facility] Comment on above: Performed By: #### 2 29126 #### [facility],[address] [place] [address] 36175 Cholesterol.total/Mare sterol in HDL [Mass ratio] 3.9 {ratio} Normal 0.0 - 5.0 [facility] Comment on above: Performed By: #### 2 94830 #### [facility],[address] [place] [address] 34635 Lipid 1996 panel Normal [facility] Comment on above: Result Comment: LIPI D PROFILE Performed By: #### 2 43337 #### [facility],[address] [place] [address] 45193 Triglyceride [Mass/Vol] 77 mg/dL Normal 0 - 150 [facility] Comment on above: Performed By: #### 2 83307 #### [facility],[address] [place] [address] 31498 LIPID PROFILEon 11-24-2024 Cholesterol [Mass/Vol] 176 mg/dL Normal 0 - 240 [facility] Comment on above: Performed By: #### 2 44234 #### [facility],[address] [place] [address] 13949 Cholesterol in HDL [Mass/Vol] 60 mg/dL Normal 40 - 60 [facility] Comment on above: Performed By: #### 2 70998 #### [facility],[address] [place] [address] 83961 Cholesterol in LDL [Mass/Vol] 97 mg/dL Normal 0 - 129 [facility] Comment on above: Performed By: #### 2 93357 #### [facility],[address] [place] [address] 35132 Cholesterol.total/Mare sterol in HDL [Mass ratio] 2.9 {ratio} Normal 0.0 - 5.0 [facility] Comment on above: Performed By: #### 2 43606 #### [facility],[address] [place] [address] 88743 Lipid 1996 panel Normal [facility] Comment on above: Result Comment: LIPI D PROFILE Performed By: #### 2 61638 #### [facility],[address] [place] [address] 78945 Triglyceride [Mass/Vol] 94 mg/dL Normal 0 - 150 [facility] Comment on above: Performed By: #### 2 38723 #### [facility],[address] [place] [address] 12733 Basic Metabolic Profile (BMP )on 09-30-2024 BUN/CRE 17.1 RATIO Normal 10-20 [facility] Comment on above: Order Comment: Order Date: 04/22/24 Order Info: 06- - BMP Order Info: - LIPID Order Info: 3 - TSH Performed By: #### L 509.1000, L506.1000, L500.2500, L501.9520 #### [facility] [address] [place], [address] CA,Total 9.9 mg/dL Normal 8.5-10.1 [facility] Comment on above: Order Comment: Order Date: 04/22/24 Order Info: 0667- - BMP Order Info: 87923-7 - LIPID Order Info: 3 - TSH Performed By: #### L 509.1000, L506.1000, L500.2500, L501.9520 #### [facility] [address] [place], [address] Chloride [Moles/Vol] 105 mmol/L Normal 98-107 [facility] Comment on above: Order Comment: Order Date: 04/22/24 Order Info: 0667-1 - BMP Order Info: 17306-2 - LIPID Order Info: 3 - TSH Performed By: #### L 509.1000, L506.1000, L500.2500, L501.9520 #### [facility] [address] [place], [address] CO2 [Moles/Vol] 29.0 mmol/L Normal 21.0-32.0 [facility] Comment on above: Order Comment: Order Date: 04/22/24 Order Info: 666-09 - BMP Order Info: - LIPID Order Info: 3015-10 - TSH Performed By: #### L 509.1000, L506.1000, L500.2500, L501.9520 #### [facility] [address] [place], [address] Creatinine [Mass/Vol] 1.05 mg/dL High 0.55-1.02 [facility] Comment on above: Order Comment: Order Date: 04/22/24 Order Info: 666-09 - BMP Order Info: - LIPID Order Info: 3015-10 - TSH Result Comment: The validity of the calculated GFR GFRAA in patients over 70 years has not been determined. Clinical correlation is essential. Performed By: #### L 509.1000, L506.1000, L500.2500, L501.9520 #### [facility] [address] [place], [address] EST GFR - AA 65 mL/min Normal >60 [facility] Comment on above: Order Comment: Order Date: 04/22/24 Order Info: 666-09 - BMP Order Info: - LIPID Order Info: 3015-10 - TSH Result Comment: Afri can Vincentian GFR Calc Performed By: #### L 509.1000, L506.1000, L500.2500, L501.9520 #### [facility] [address] [place], [address] GAP 6 Normal 5-15 [facility] Comment on above: Order Comment: Order Date: 04/22/24 Order Info: 666-09 - BMP Order Info: - LIPID Order Info: 3015-10 - TSH Performed By: #### L 509.1000, L506.1000, L500.2500, L501.9520 #### [facility] [address] [place], [address] GFR/1.73 sq M.predicted among non-blacks MDRD (S/P/Bld) [Vol rate/Area] 54 mL/min/{1.73_m2} Low >60 [facility] Comment on above: Order Comment: Order Date: 04/22/24 Order Info: 666-09 - BMP Order Info: - LIPID Order Info: 3015-10 - TSH Result Comment: Non- GFR Calc Performed By: #### L 509.1000, L506.1000, L500.2500, L501.9520 #### [facility] [address] [place], [address] Glucose [Mass/Vol] 102 mg/dL Normal 74-106 [facility] Comment on above: Order Comment: Order Date: 04/22/24 Order Info: 666-09 - BMP Order Info: - LIPID Order Info: 3015-10 - TSH Result Comment: Fast ing Glucose result from 100 to 125 mg/dL suggests IMPAIRED HOMEOSTASIS per A.D.A. criteria. Performed By: #### L 509.1000, L506.1000, L500.2500, L501.9520 #### [facility] [address] [place], [address] Potassium [Moles/Vol] 4.3 mmol/L Normal 3.5-5.1 [facility] Comment on above: Order Comment: Order Date: 04/22/24 Order Info: 666-09 - BMP Order Info: - LIPID Order Info: 3015-10 - TSH Performed By: #### L 509.1000, L506.1000, L500.2500, L501.9520 #### [facility] [address] [place], [address] Sodium [Moles/Vol] 139 mmol/L Normal 136-145 [facility] Comment on above: Order Comment: Order Date: 04/22/24 Order Info: 666-09 - BMP Order Info: - LIPID Order Info: 3015-10 - TSH Performed By: #### L 509.1000, L506.1000, L500.2500, L501.9520 #### [facility] [address] [place], [address] Urea nitrogen [Mass/Vol] 18 mg/dL Normal 7-18 [facility] Comment on above: Order Comment: Order Date: 04/22/24 Order Info: 666-09 - BMP Order Info: - LIPID Order Info: 3015-10 - TSH Performed By: #### L 509.1000, L506.1000, L500.2500, L501.9520 #### [facility] [address] [place], [address] Lipid Profileon 09-30-2024 Cholesterol [Mass/Vol] 258 mg/dL High 200 [facility] Comment on above: Order Comment: Order Date: 04/22/24 Order Info: 666-09 - BMP Order Info: - LIPID Order Info: 3015-10 - TSH Result Comment: <200 mg/dL Desirable 200-240 mg/dL Borderline >240 mg/dL High Risk Performed By: #### L 500.4100 #### [facility] [address] [place], [address] Cholesterol in HDL [Mass/Vol] 60 mg/dL Normal [facility] Comment on above: Order Comment: Order Date: 04/22/24 Order Info: 666-09 - BMP Order Info: - LIPID Order Info: 3015-10 - TSH Result Comment: The drugs N-Acetylcysteine and Metamizole may falsely depress this assay. Reference Range HDL <40 mg/dL Low HDL Cholesterol HDL >or= 60 mg/dL High HDL Cholesterol Performed By: #### L 500.4100 #### [facility] [address] [place], [address] Cholesterol in LDL [Mass/Vol] 175 mg/dL High 0-130 [facility] Comment on above: Order Comment: Order Date: 04/22/24 Order Info: 666-09 - BMP Order Info: 26039-1 - LIPID Order Info: 3016-3 - TSH Performed By: #### L 500.4100 #### [facility] [address] [place], [address] Cholesterol in VLDL [Mass/Vol] 23 mg/dL Normal 5-40 [facility] Comment on above: Order Comment: Order Date: 04/22/24 Order Info: 666-09 - BMP Order Info: - LIPID Order Info: 3015-3 - TSH Performed By: #### L 500.4100 #### [facility] [address] [place], [address] Triglyceride [Mass/Vol] 115 mg/dL Normal [facility] Comment on above: Order Comment: Order Date: 04/22/24 Order Info: 666-09 - BMP Order Info: - LIPID Order Info: 3015-3 - TSH Result Comment: The drugs N-Acetylcysteine and Metamizole may falsely depress this assay. Serum Triglycerides Reference Interval Normal <150 mg/dL Borderline high 150 - 199 mg/dL High 200 - 499 mg/dL Very High > or = 500 mg/dL Performed By: #### L 500.4100 #### [facility] [address] [place], [address] PTHINon 09-30-2024 PTH 82.0 pg/mL High 18.4-80.1 [facility] Comment on above: Order Comment: Order Date: 04/22/24 Order Info: 0565-1 - PTHIN Performed By: #### L 509.1000, L506.1000, L500.2500, L501.9520 #### [facility] [address] [place], [address] Thyroid Stim Hormone (TSH)on 09-30-2024 TSH 1.800 uIU/mL Normal 0.358-3.740 [facility] Comment on above: Order Comment: Order Date: 04/22/24 Order Info: 0667-1 - BMP Order Info: [id number] - LIPID Order Info: 3016-3 - TSH Performed By: #### L 509.1000, L506.1000, L500.2500, L501.9520 #### [facility] [address] [place], [place], [address] Vitamin D,25 Hydroxyon 09-30 Vitamin D 25-OH 92.1 ng/mL Normal [facility] Comment on above: Order Comment: Order Date: 04/22/24 Order Info: [id number] - VITD25 Result Comment: Yi min D 25(OH) Status Range Deficiency <20 ng/mL (50nmol/L) Insufficiency 20 - 30 ng/mL (50 - 75 nmol/L) Sufficiency 30 - 100 ng/mL (75 - 250 nmol/L) Toxicity >100 ng/mL (>250 nmol/L) Performed By: #### L 509.1000, L506.1000, L500.2500, L501.9520 #### [facility] [address] [place], [place], [address] HEMOGLOBIN A1C (POM)on 04-28 Glucose [Mass/Vol] 116.9 mg/dL High 0.0 - 0.0 [facility] Comment on above: Result Comment: BLDo HEMOGLOBIN A1C REFERENCE RANGESBLDo Suggested Diagnosis HbA1c(%) HbA1C (mmol/mol Diabetic >/=6.5 >/=48 Prediabetes 5.7 - 6.4 39 - 47 Normal <5.7 <39 Performed By: #### 2 55016 #### [facility],[address] [place] [address] 05796 HbA1c (Bld) [Mass fraction] 5.7 % Normal 0.0 - 6.5 [facility] Comment on above: Performed By: #### 2 19124 #### [facility],[address] [place] [address] 06765 LIPID PROFILEon 04-28-2024 Cholesterol [Mass/Vol] 285 mg/dL High 0 - 240 [facility] Comment on above: Performed By: #### 2 22487 #### [facility],[address] [place] [address] 75191 Cholesterol in HDL [Mass/Vol] 60 mg/dL Normal 40 - 60 [facility] Comment on above: Performed By: #### 2 66049 #### [facility],[address] [place] [address] 02317 Cholesterol in LDL [Mass/Vol] 194 mg/dL High 0 - 129 [facility] Comment on above: Performed By: #### 2 28851 #### [facility],[address] [place] [address] 56727 Cholesterol.total/Mare sterol in HDL [Mass ratio] 4.8 {ratio} Normal 0.0 - 5.0 [facility] Comment on above: Performed By: #### 2 94336 #### [facility],[address] [place] [address] 24644 Lipid 1996 panel Normal [facility] Comment on above: Result Comment: LIPI D PROFILE Performed By: #### 2 22086 #### [facility],[address] [place] [address] 34792 Triglyceride [Mass/Vol] 154 mg/dL High 0 - 150 [facility] Comment on above: Performed By: #### 2 15443 #### [facility],[address] [place] [address] 73598 Dexa Bone Density Studyon Dexa Bone Density Study [facility] Imaging Services [address] [place] [address]691 Dexa Bone Density Study MR#: [id number] Acct: [id number] Name: ROBERT CHI Rep #: [id number] : 1945 F 78 From: Fer mary MD PCP: Dr. Juan Day MD Status: [facility] Study: Dexa Bone Density Study Date of Exam: 04/06/24 Exam# [id number] Ordering Dr: Juan Day [id number] STUDY: DUAL ENERGY X-RAY ABSORPTIOMETRY / DXA REASON FOR EXAM: Female, 78 years old. Z780 TECHNIQUE: Bone Mineral Density (BMD) measurements of lumbar spine and bilateral hips were obtained. COMPARISON: Comparison is made with prior study dated October 02, 2021. FINDINGS: Lumbar Spine (L1-L4): g/cm2 (0.767) / T-score (-2.5) / Z-score (0.0) Findings are suggestive of osteoporosis with a high fracture risk. Left Femur Total: g/cm2 (0.711) / T-score (-1.9) / Z-score (0.1) Left Femoral Neck: g/cm2 (0.569) / T-score (-2.5) / Z-score (-0.3) Right Femur Total: g/cm2 (0.684) / T-score (-2.1) / Z-score (-0.1) Right Femoral Neck: g/cm2 (0.598) / T-score (-2.3) / Z-score (0.0) The T-Scores on the most recent prior examination were: Lumbar Spine (L1-L4): There has been worsening of bone density since the previous examination. Left Femur Total: which represents a worsening of 1.1%. Right Femur Total: which represents an improvement of 4.1%. BD/Dexa Bone Density Study IMPRESSION: The patient is considered osteoporotic as outlined below according to World Alvin Organization (WHO) criteria with a high fracture risk. There has been worsening of bone density since the previous examination. Reference Information: The T-score is the number of standard deviations above or below the standard which is normal for young adults at their peak bone mineral density. The World Health Organization (WHO) interprets the T-scores as follows: Above -1 Normal bone density Between -1 and -2.5 Osteopenia Equal to / or below -2.5 Osteoporosis As a practical clinical guideline, osteopenia may be graded as follows: Mild -1 through -1.5 Moderate -1.6 through -2.0 Severe -2.1 through -2.4 The Z-score is the number of standard deviations above or below age-matched controls. A Z-score of less than -1.5 would be considered abnormal. References: 1. NIH Osteoporosis and Related Bone Diseases www osteo.org 2. International Society for Clinical Densitometry www iscd.org 3. National Osteoporosis Foundation www nof.org Electronically Signed: Fer Avila MD at 9:31 EDT Reading Location ID and State: [facility] / [place] , Service support , CC: Dr. Juan Day MD Concrete Paving Supervisor: Signed Normal [facility] SCRN MAMM (CAD)W/MARCIE BILATo n 04-06-2024 SCRN MAMM (CAD)W/MARCIE BILAT [facility] Imaging Services [address] [place] [address]791 SCRN MAMM (CAD)W/MARCIE BILAT MR#: [id number] Acct: [id number] Name: ROBERT CHI Rep #: [id number] : 1945 F 78 From: Fer mary MD PCP: Dr. Juan Day MD Status: [facility] Study: SCRN MAMM (CAD)W/MARCIE BILAT Date of Exam: 02/22 Exam# [id number] Ordering Dr: Juan Day [id number] MAMMOGRAPHY - BILATERAL SCREENING REASON FOR EXAM: Female, 78 years old. Routine annual screening examination. PERTINENT HISTORY: Non-contributory. TECHNIQUE: Digital bilateral breast marcie (3D mammographic acquisition) in the CC and MLO projections. 2-D mediolateral oblique (MLO) and craniocaudad (CC) views of both breasts were obtained. CAD: Full Field Digital Mammography with Computer Added Detection was performed. COMPARISON: Comparison is made with prior study January 17, 2022 and December 27, 2020. FINDINGS: Breast Composition: The breasts are heterogeneously dense, which may obscure small masses. There are no dominant masses or suspicious calcifications. No other significant abnormalities are identified. There has been no significant change since the prior study. BI/SCRN MAMM (CAD)W/MARCIE BILAT IMPRESSION: Stable bilateral screening mammogram. Yearly follow-up mammogram recommended. (A) ASSESSMENT CATEGORY: BIRADS Category 1: Negative. A letter regarding these results will be sent to the patient by the facility within 30 days. Approximately 10% of breast cancers are not detected by mammography. A normal mammogram should not delay biopsy of a clinically suspicious abnormality. [id number] Electronically Signed: Fer Avila MD at 15:38 EDT , CC: Dr. Juan Day MD [employer] P[employer] Supervisor: Signed Normal [facility] Basic Metabolic Profile (BMP )on 03-22-2024 BUN/CRE 13.5 RATIO Normal 10-20 [facility] Comment on above: Order Comment: Order Date: 03/19/24 Order Info: 0667-1 - BMP Performed By: #### L 500.2500 #### [facility] [address] [place], [address] CA,Total 9.2 mg/dL Normal 8.5-10.1 [facility] Comment on above: Order Comment: Order Date: 03/19/24 Order Info: 06 - BMP Performed By: #### L 500.2500 #### [facility] [address] [place], [address] Chloride [Moles/Vol] 105 mmol/L Normal 98-107 [facility] Comment on above: Order Comment: Order Date: 03/19/24 Order Info: 666-09 - BMP Performed By: #### L 500.2500 #### [facility] [address] [place], [address] CO2 [Moles/Vol] 28.0 mmol/L Normal 21.0-32.0 [facility] Comment on above: Order Comment: Order Date: 03/19/24 Order Info: 666-09 - BMP Performed By: #### L 500.2500 #### [facility] [address] [place], [address] Creatinine [Mass/Vol] 1.04 mg/dL High 0.55-1.02 [facility] Comment on above: Order Comment: Order Date: 03/19/24 Order Info: 666-09 - BMP Result Comment: The validity of the calculated GFR GFRAA in patients over 70 years has not been determined. Clinical correlation is essential. Performed By: #### L 500.2500 #### [facility] [address] [place], [address] EST GFR - AA 66 mL/min Normal >60 [facility] Comment on above: Order Comment: Order Date: 03/19/24 Order Info: 06- - BMP Result Comment: Afri can Vincentian GFR Calc Performed By: #### L 500.2500 #### [facility] [address] [place], [address] GAP 3 Low 5-15 [facility] Comment on above: Order Comment: Order Date: 03/19/24 Order Info: 06 - BMP Performed By: #### L 500.2500 #### [facility] [address] [place], [address] GFR/1.73 sq M.predicted among non-blacks MDRD (S/P/Bld) [Vol rate/Area] 54 mL/min/{1.73_m2} Low >60 [facility] Comment on above: Order Comment: Order Date: 03/19/24 Order Info: 666-09 - BMP Result Comment: Non- GFR Calc Performed By: #### L 500.2500 #### [facility] [address] [place], [address] Glucose [Mass/Vol] 90 mg/dL Normal 74-106 [facility] Comment on above: Order Comment: Order Date: 03/19/24 Order Info: 666-09 - BMP Performed By: #### L 500.2500 #### [facility] [address] [place], [address] Potassium [Moles/Vol] 4.0 mmol/L Normal 3.5-5.1 [facility] Comment on above: Order Comment: Order Date: 03/19/24 Order Info: 666-09 - BMP Performed By: #### L 500.2500 #### [facility] [address] [place], [address] Sodium [Moles/Vol] 136 mmol/L Normal 136-145 [facility] Comment on above: Order Comment: Order Date: 03/19/24 Order Info: 666-09 - BMP Performed By: #### L 500.2500 #### [facility] [address] [place], [address] Urea nitrogen [Mass/Vol] 14 mg/dL Normal 7-18 [facility] Comment on above: Order Comment: Order Date: 03/19/24 Order Info: 06- - BMP Performed By: #### L 500.2500 #### [facility] [address] [place], [address] Basophil percentageOrdered B y: Frederick Day on 09-16-2023 Bilirubin [Mass/Vol] 0.60 mg/dL 0.20-1.00 [facility] Comment on above: For patients on eltr ombopag therapy, use of Dimension [place] TBIL is not recommended. Chloride [Moles/Vol] 103 mmol/L 98-107 [facility] Cholesterol [Mass/Vol] 277 mg/dL <200 [facility] Comment on above: <200 mg/dL Desirable 200-240 mg/dL Borderline >240 mg/dL High Risk Glucose [Mass/Vol] 95 mg/dL 74-106 [facility] Potassium [Moles/Vol] 4.0 mmol/L 3.5-5.1 [facility] Protein [Mass/Vol] 7.3 g/dL 6.4-8.2 [facility] Sodium [Moles/Vol] 137 mmol/L 136-145 [facility] Triglyceride [Mass/Vol] 131 mg/dL <199 [facility] Comment on above: The drugs N-Acetylcy steine and Metamizole may falsely depress this assay.Serum Triglycerides Reference Interval Normal <150 mg/dL Borderline high 150 - 199 mg/dL High 200 - 499 mg/dL Very High > or = 500 mg/dL High density lipoprotein (HD L) measurementOrdered By: Frederick Day on 09-16-2023 Cholesterol in HDL (Body fld) [Mass/Vol] 60 mg/dL >40 [facility] Comment on above: The drugs N-Acetylcy steine and Metamizole may falsely depress this assay. Reference Range HDL <40 mg/dL Low HDL Cholesterol HDL >or= 60 mg/dL High HDL Cholesterol Laboratory - Chemistry and C hemistry - challengeOrdered By: Frederick Day on 09-16-2023 Albumin/Globulin [Mass ratio] 1.0 {ratio} 0.9-2.4 [facility] ALP [Catalytic activity/Vol] 86 U/L 45-117 [facility] ALT [Catalytic activity/Vol] 23 U/L 13-56 [facility] [facility] CO2 [Moles/Vol] 26.0 mmol/L 21.0-32.0 [facility] Globulin (S) [Mass/Vol] 3.7 g/dL 2.2-4.2 [facility] Urea nitrogen/Creatinine [Mass ratio] 13.9 mg/mg 10-20 [facility] Low density lipoprotein (LDL ) cholesterol measurementOrdered By: Frederick Day on 09-16-2023 Cholesterol in LDL (Body fld) [Moles/Vol] 191 mg/dL 0-130 [facility] No Panel InformationOrdered By: Frederick Day on 09-16-2023 Estimated GFR (MDRD) Amer 63 mL/min >60 [facility] Comment on above: GFR Calc Estimated GFR (MDRD) Non-Af Amer 52 mL/min >60 [facility] Comment on above: Non- GFR Calc Vitamin D 25-Hydroxy 102.3 ng/mL [facility] Comment on above: Vitamin D 25(OH) Sta tus Range Deficiency <20 ng/mL (50nmol/L) Insufficiency 20 - 30 ng/mL (50 - 75 nmol/L) Sufficiency 30 - 100 ng/mL (75 - 250 nmol/L) Toxicity >100 ng/mL (>250 nmol/L)Evidence suggests that patients undergoing fluorescein dye angiography can retain small amounts of fluorescein in the body for up to 48 to 72 hours post-treatment. In the cases of patients with renal insufficiency, retention could be much longer. Samples containing fluorescein can produce falsely elevated values when tested with the [employer] Centaur Vitamin D assay. With fluorescein interference, observed Vitamin D values can be as high as >150 ng/mL (>375 nmol/L). Samples should be resubmitted post fluorescein clearance to ensure there is no interference with Vitamin D test results. Serum or plasma calcium facundo urement (mass/volume)Ordered By: Frederick Day on 09-16-2023 Calcium [Mass/Vol] 9.9 mg/dL 8.5-10.1 [facility] Serum or plasma creatinine m easurement (mass/volume)Ordered By: Frederick Day on 09-16-2023 Creatinine [Mass/Vol] 1.08 mg/dL 0.55-1.02 [facility] Comment on above: The validity of the calculated GFR & GFRAA in patients over 70 years has not been determined. Clinical correlation is essential. Serum or plasma thyroid stim ulating hormone (TSH) measurement (units/volume)Ordered By: Frederick Day on 09-16-2023 TSH Qn 1.73 uIU/mL 0.358-3.74 [facility] Serum or plasma urea nitroge n measurement (mass/volume)Ordered By: Frederick Day on 09-16-2023 Urea nitrogen [Mass/Vol] 15 mg/dL 7-18 [facility] Thin prep Papanicolaou smear with manual screeningOrdered By: Frederick Day on 09-16-2023 Thin prep Papanicolaou smear with manual screening 3.6 g/dL 3.2-5.0 [facility] Thin prep Papanicolaou smear with manual screening 28 U/L 15-37 [facility] Thin prep Papanicolaou smear with manual screening 8 5-15 [facility] Very low density lipoprotein (VLDL) cholesterol measurementOrdered By: Frederick Day on 09-16-2023 Cholesterol in VLDL Calc [Moles/Vol] 26 mg/dL 5-40 [facility] Basophil percentageOrdered B y: Dr. Day on 09-19-2022 Basophil percentage 3.3 mg/dL 2.5-4.9 [facility] Chloride [Moles/Vol] 104 mmol/L 98-107 [facility] Glucose [Mass/Vol] 87 mg/dL 74-106 [facility] Potassium [Moles/Vol] 4.5 mmol/L 3.5-5.1 [facility] Sodium [Moles/Vol] 141 mmol/L 136-145 [facility] Laboratory - Chemistry and C hemistry - challengeOrdered By: Dr. Day on 09-19-2022 CO2 [Moles/Vol] 31.0 mmol/L 21.0-32.0 [facility] Magnesium [Mass/Vol] 2.5 mg/dL 1.6-2.6 [facility] Urea nitrogen/Creatinine [Mass ratio] 16.2 mg/mg 10-20 [facility] No Panel InformationOrdered By: Dr. Day on 09-19-2022 Estimated GFR (MDRD) Amer 65 mL/min >60 [facility] Comment on above: GFR Calc Estimated GFR (MDRD) Non-Af Amer 54 mL/min >60 [facility] Comment on above: Non- GFR Calc Ionized Calcium 5.6 mg/dL 4.5-5.6 [facility] Comment on above: Performed at: [facility] [facility] [place] [id number] Director: Marck Lopez PhD, Phone: [phone] Parathyroid Hormone (Intact) 41.6 pg/mL 18.4-80.1 [facility] Vitamin D 25-Hydroxy 84.9 ng/mL [facility] Comment on above: Vitamin D 25(OH) Sta tus Range Deficiency <20 ng/mL (50nmol/L) Insufficiency 20 - 30 ng/mL (50 - 75 nmol/L) Sufficiency 30 - 100 ng/mL (75 - 250 nmol/L) Toxicity >100 ng/mL (>250 nmol/L) Serum or plasma calcium facundo urement (mass/volume)Ordered By: Dr. Day on 09-19-2022 Calcium [Mass/Vol] 9.6 mg/dL 8.5-10.1 [facility] Serum or plasma creatinine m easurement (mass/volume)Ordered By: Dr. Day on 09-19-2022 Creatinine [Mass/Vol] 1.05 mg/dL 0.55-1.02 [facility] Comment on above: The validity of the calculated GFR & GFRAA in patients over 70 years has not been determined. Clinical correlation is essential. Serum or plasma urea nitroge n measurement (mass/volume)Ordered By: Dr. Day on 09-19-2022 Urea nitrogen [Mass/Vol] 17 mg/dL 7-18 [facility] Thin prep Papanicolaou smear with manual screeningOrdered By: Dr. Day on 09-19-2022 Thin prep Papanicolaou smear with manual screening 6 5-15 [facility] Vital Signs Date Time Vital Sign Value Performing Clinician Faci lity 10-02-2021 13:23-0500 Body height 154.94 cm [facility] Work Phone: Encounters Encounter Date Encounter Type Care Provider Facility Start: 02-23-2025 End: 02-23-2025 ambulatory EXTERNAL PROVIDER [facility] Start: 11-24-2024 End: 11-24-2024 ambulatory [facility] Start: 09-30-2024 End: 09-30-2024 ambulatory [facility] Facility:[facility] Start: 05-18-2024 Encounter for genera l adult medical examination without abnormal findings Juan Day [facility] Start: 04-28-2024 End: 04-28-2024 ambulatory [facility] Start: 04-06-2024 End: 04-06-2024 ambulatory [facility] Facility:[facility] Start: 03-22-2024 End: 03-22-2024 ambulatory [facility] Facility:[facility] Start: 03-17-2024 End: 03-17-2024 ambulatory [facility] Facility:[facility] Start: 09-16-2023 End: 09-16-2023 ambulatory [facility] Work Phone: Start: 09-16-2023 End: 09-16-2023 Patient encounter procedure [facility] Start: 09-19-2022 End: 09-19-2022 ambulatory [facility] Work Phone: Start: 09-19-2022 End: 09-19-2022 Patient encounter procedure [facility] Start: 01-17-2022 End: 01-17-2022 Patient encounter procedure [facility] Breast Imaging Start: 10-02-2021 End: 10-02-2021 Patient encounter procedure [facility]Out[facility] Bone Densitometry Procedures Date Procedure Procedure Detail Performing Clinician Start: 01-17-2022 Screening mammography Start: 10-02-2021 Dual energy X-ray absorptiometry Payers Date Payer Category Payer Private Health Insurance [id number] 2024 Self-pay [id number] 2021 Medicare [id number] Unknown [id number] Unknown [id number] Unknown [id number] Unknown [id number] Unknown [id number] Social History Date Type Detail Facility Tobacco smoking stat [facility] Unknown if ever smoked [facility] Work Phone: Start: 1945 Sex Assigned At Female [facility] Evaluation note Note Date & Type Note Facility Evaluation note No assessment information availa ble [facility] Work Phone: Chief Complaint and Reason for Visit Chief Complaint SCREENING/OSTEO SCREENING Summary Purpose Family History No Family History Records FoundNo Family History Records Found Advance Directives No Advanced Directives Records FoundNo Advanced Directives Records Found Additional Source Comments Goals (unrecognized section and content) Goals may be documented in a n alternate sectionGoals may be documented in an alternate sectionGoals may be documented in an alternate section Care Teams (unrecognized sec tion and content) Team Status: Active Member Role Status Dates Dr. Frederick Day MD Family Provider Active Dr. Frederick Day MD Primary Care Provider Activ e Team Status: Inactive Member Role Status Dates Dr. Frederick Day MD Primary Care Provider, Atte nding Provider Active INFORMATION SOURCE (unrecogn ized section and content) DATE CREATED AUTHOR 10/15/2024 [facility] DATE CREATED AUTHOR AUTHOR'S ORGANIZ ATION 02/24/2025 [facility] FOR RECORDS PERTAINING TO PATIENTS WHO ARE [...] BE BASED ON THE PRIMARY CLINICAL RECORDS. [employer] [facility]. provides no warranty or guarantee of the accuracy or completeness of information in this document.
== END | disposition home or self-care (01) ==
LOC: MFPLAB 09:21
PROVIDERS: PCP Family Medicine; Referring Provider Family Medicine; Visit Provider Family Medicine
DX: R73.01 Impaired fasting glucose (principal); I10 Essential (primary) hypertension
CPT/HCPCS: 36415; 80048; 80061